=== PATIENT | male | born 1960 | race Caucasian/White ===

== ENCOUNTER → 2023-11-02 07:05 | Outpatient (REF) | payer BC, SELFPAY ==
[2023-11-02 10:14] LABS: ALT (SGPT) 30 U/L (0-50); AST (SGOT) 32 U/L (17-59); Albumin 4.5 g/dl (3.5-5.0); Alkaline Phosphatase 54 U/L (38-126); Blood Urea Nitrogen 9 mg/dl (9-20); Calcium 9.8 mg/dl (8.4-10.2); Carbon Dioxide 24 mmol/L (22-30); Chloride 102 mmol/L (98-107); Glucose 97 mg/dl (70-99); HDL Cholesterol 76 mg/dl; LDL Cholesterol, Calculated 76 mg/dl; Potassium 4.3 mmol/L (3.5-5.1); Sodium 141 mmol/L (135-145); Total Bilirubin 0.6 mg/dl (0.2-1.3); Total Cholesterol 161 mg/dl (50-199); Total Protein 6.9 g/dl (6.3-8.2); Triglyceride 47 mg/dl (10-149); Very Low Density Lipoprotein 9 mg/dl (0-30); eGFR > 60.00
[2023-11-02 18:48] LABS: Hepatitis C Antibody Negative (Negative)
== END ==
LOC: HWRAD 07:05
PROVIDERS: ATTENDING PHYSICIAN Nurse Practitioner
DX: Z78.9 Other specified health status (principal); R79.89 Other specified abnormal findings of blood chemistry; E78.5 Hyperlipidemia, unspecified
CPT/HCPCS: 36415; 76700; 80053; 80061; 86803